=== PATIENT | female | born 1930 | race Caucasian/White ===

== ENCOUNTER 2019-03-22 16:34 | Inpatient (IN) | payer OTHER ==
[~2019-03-22] VITALS: Ht 165.1 cm; Wt 50.8 kg
--- NOTE | ~2019-03-22 | D ---
[facility] [place] [address] DISCHARGE SUMMARY Name: LINDA SHAY Room #: 522B-B DIS IN M.R.#: [id number] Admission: 03/22/19 Attend Phys: Bradley Fu DO Discharge: 03/27/19 Date of : [birth year] Report #: [id number] THIS REPORT FOR: //name// CC: Bradley Fu [facility] DATE OF SERVICE: 03/27/2019 PSYCHIATRIC DISCHARGE SUMMARY ATTENDING PHYSICIAN: Bradley Fu DO HELIOTHERAPIST THIS ADMISSION: Bradley Jara MD DISCHARGE DIAGNOSES: Delusional disorder; also a mild major neurocognitive disorder. DISCHARGE PLAN: Patient's family taking her back to assisted living facility today. Recommended to have primary care as well as psychiatric followup to be provided by the receiving facility. DIET: Regular. ACTIVITY LEVEL: As tolerated. No driving, no alcohol, no illicit drugs. REASON FOR ADMISSION: The patient apparently had a series of bizarre, some of them threatening statements alleging she was going to shoot herself and things like that. She also coincidentally had been visiting a neurologist and claims she had white dots on her skin. HOSPITAL COURSE: The patient was admitted to the Geriatric Psychiatry Unit. The patient did not have any self-injurious thoughts or behaviors while on the unit. She did voice a strong opinion that there were these lesions on her skin. She was started on 2.5 mg a day of olanzapine to address these delusions. Supportive listening was provided. I did not feel a prolonged hospital stay would be beneficial to the patient. On the date of discharge, she was not suicidal or homicidal, and she requested discharge beginning of this week. DISCHARGE MEDICATIONS: Metoprolol succinate 25 mg p.o. daily for rate control and blood pressure, olanzapine 2.5 mg p.o. b.i.d. for psychosis, bumetanide (Bumex) 0.5 mg p.o. daily, levothyroxine 112 mcg daily for hypothyroidism, vitamin D3 5000 international units p.o. daily, topiramate 100 mg p.o. b.i.d., paroxetine 10 mg p.o. t.i.d., this is a rather unusual regimen but we will run with it, simvastatin 40 mg p.o. daily for hyperlipidemia, potassium chloride 10 mEq p.o. daily for supplementation, lisinopril 5 mg p.o. daily, apixaban 5 mg p.o. daily and bupropion SR 100 mg p.o. daily. [address] [address] DISCHARGE SUMMARY Name: LINDA SHAY Room #: 522B-B [facility] IN M.R.#: [id number] Admission: 03/22/19 Attend Phys: Bradley Fu, Discharge: 03/27/19 Date of : [birth year] Report #: [id number] I just noticed something that the hospitalist recommended her levothyroxine be changed to 112 mcg for a TSH of 15.8, recheck in 6-8 weeks. MEDICAL COMORBIDITIES: 1. Hypertension. Continue beta eloisa. 2. Unstable gait, using a walker. 3. History of atrial fibrillation, on Eliquis, beta eloisa, and amiodarone. 4. Also coronary artery disease. LABORATORY DATA THIS ADMISSION: H and H 12.7 and 37.4, white count 7.6, platelet count 176, that was on March 25. On March 25, sodium 141, potassium 4.4, chloride 107, bicarbonate 28, BUN 25, creatinine 1.0, estimated GFR 52, glucose 82, calcium 9.2, magnesium 2.1. MUSCULOSKELETAL EXAMINATION: Frail female wearing glasses. MENTAL STATUS EXAMINATION: This is a well-developed female appearing stated age. Attention intact. Concentration intact. Speech normal rate. Thought process linear and limited. Thought content focused on discharge. Mood and affect anxious, congruent, constricted. Denied SI or HI. Denied hopelessness, helplessness. Memory not formally tested. Insight limited. Judgment limited. PROGNOSIS: For this patient is guarded given her medical and cognitive concerns. By: [id number] Bradley Fu, DO /nt
[~2019-03-22 16:34] MED LIST: ALEVE220 M1 PO; CENTRUM SILVER1 EAC4 PO; ELIQUIS5 MG PO; KLOR-CON 1010 MEQ PO; LASIX 40 MG TAB40 M2 PO; LOPRESSOR50 PO; PAXIL10 MG PO; PRINIVIL10 MG PO; RESTORIL15 MG PO; SIMVASTATIN40 MG PO; SORINE 80 MG TA80 M1 PO; SYNTHROID112 MCG PO; TROKENDI XR100 MG PO; WELLBUTRIN SR100 MG PO
--- NOTE | 2019-03-22 18:46 | NUR ---
WHITE FEMALE ADMITTED THROUGH ER FROM A SKILLED NURSING. SHE IS VERY ANXIOUS. SHE STATES SHE FEELS HER SKIN FEELS LIKE SAND OR FINE SUGAR ALL OVER HER BODY. SHE FEELS THIS IS CAUSING ISSUES AND THEREFORE SHE FEELS SUICIDAL BECAUSE OF THE WAY IT MAKES HER FEEL. SHE DENIES HAVING A PLAN. SHE LIVES IN A SKILLED NURSING, HAS VERY LITTLE SUPPORT SYSTEM. HER DAUGHTER ABOUT 2 YEARS AGO. SINCE THAT TIME SHE HAS BEEN INCREASINGLY NOT BEEN ABLE TO CARE FOR HERSELF. HER DAUGHTERS BEST FRIEND IS HER DPOA (EDITH SINGLETON PHONE [phone]). THE DPOA WAS VERY HELPFUL IN ASSISTING STAFF WITH THE ADMISSION AND DID SIGN ALL THE CONSENTS. SHE HAS A PMHX OF AFIG, HIP FX, FELL ABOUT 1 MONTH AGO. SHE HAS DENTURES, GLASSES. SHE HAS HEARING AIDS BUT NOT WITH HER AT THE HOSPITAL. SHE STATES SHE HAS A POOR APPETITE AND DOES NOT EAT WELL. DR. JAQUEZ WAS NOTIFIED OF HER ARRIVAL AND STATED HE WOULD SEE HER IN THE MORNING. SHE IS 5'5'' AND 111LBS. HER VITALS WERE 128/61, HR 66, OR 92%, T 98.0.
[2019-03-22 19:07] VITALS: BP 128/61
[2019-03-22 20:53] VITALS: BP 110/61
[2019-03-23 01:31] VITALS: BP 110/61
--- NOTE | 2019-03-23 04:51 | NUR ---
PATIENT CAME IN NEW PATIENT TODAY. SHE HAS BEEN COOPERATIVE BUT IS VERY ANXIOUS AT TIMES. AT BEDTIME SHE WAS CONCERNED THAT SHE COULD NOT HAVE HER XANAX AND STATES SHE IS USED TO TAKING IT TO HELP HER SLEEP. I LET HER KNOW I WOULD CALL THE DOCTOR IF SHE HAD PROBLEMS FALLING TO SLEEP. SHE FELL ASLEEP AND HAS SLEPT ALL NIGHT. SHE HAS A HISTORY OF A CABG IN PAST AND STATES THAT THE VEIN FROM HER LEFT LEG WAS USED FOR THE SURGERY BUT THAT IT'S HER RIGHT LEG THAT BOTHERS HER. SHE STATES SHE HAD INJURED HER RIGHT HIP BEFORE AND IT SOMETIMES CAUSES HER RIGHT LEG PAIN. SHE WAS GIVEN TYLENOL 650 AT AND THIS HAS SEEMED TO HELP. SHE IS UP WITH WALKER. SHE IS UPSET THAT WE SET HER BED LOW TO THE GROUND AND TURN THE BED ALARM ON. SHE WANTS TO BE INDEPENDENT WITH THIS BUT SHE DOES NEED STAND BY ASSIST SINCE SHE CAN'T BEAR WEIGHT FOR LONG PERIOD OF TIME. PT STATES SHE HATES NOT BEING ABLE TO LIVE IN HER HOME. SHE STATES SHE HAS BEEN LIVING IN ASSISTED LIVING [facility] IN [facility]. PATIENT HAS HER BLUE FRAMED EYE GLASSES AT BEDSIDE AND USING HER OWN WALKER. SHE DOES NOT HAVE HEARING AIDS HER. PATIENT HAS BEEN SLEEPING QUIETLY SINCE AROUND 2129.
[2019-03-23 07:45] VITALS: BP 158/77
[2019-03-23 08:00] VITALS: BP 158/77
--- NOTE | 2019-03-23 09:00 | NUR ---
PT TOOK MEDS THIS AM WITHOUT ISSUES. PT STATED SHE WOULD LIKE TO TALK TO TODAY. PT USES WALKER TO AMBULATE. PT HAS STEADY GAIT.
--- NOTE | 2019-03-23 12:30 | NUR ---
PT TALKING WITH DR. ALTAMIRANO STATED SHE IS FEELING ANXIOUS IN THE ROOM OF PEOPLE.
--- NOTE | 2019-03-23 13:16 | NUR ---
STARTED NEW ZYPREXIA 2.5MG TOLD PT THAT HER XANAX WAS D/C. PT STATED THAT SHE HAD TAKEN XANAX TID THEN WENT TO ANOTHER PSYCH DR AND THEY SAID THAT TO TAKE IT AT NIGHT. PT GOING TO GROUP AFTER ADM OF MED.
--- NOTE | 2019-03-23 13:57 | NUR ---
PT WANTING TO KNOW ABOUT HER CLOTHES, PT STATED HER FAMILY BROUGHT HER CLOTHES, WILL GET CLOTHES FOR HER.
[2019-03-23 21:35] VITALS: BP 101/52
--- NOTE | 2019-03-23 21:51 | NUR ---
PT RESTING IN BED UPON ARRIVAL TO SHIFT. PT COMPLIANT WITH MEDICATIONS. PT ASKED FOR NAME OF MEDICATION REPLACING XANAX. PT STATED CONCERN THAT SHE WILL NOT BE ABLE TO SLEEP WITHOUT SLEEPING PILL. SENIOR COST ANALYST RISK ASSESSMENT CONSULTANT WILL BE NOTIFIED OF PTS REQUEST. [facility] CONTACT, FLAT AFFECT, AMBULATES WITH WALKER.
[2019-03-24 07:30] VITALS: BP 137/71
[2019-03-24 09:05] VITALS: BP 137/71
--- NOTE | 2019-03-24 09:24 | NUR ---
PT BEING COMPLIANT WITH MEDS. PT UPSET AND HANDS SHAKING. PT STATED SHE WAS WORRIED ABOUT LIVING IN ASSISTED LIVING AND PAYING FOR HER HELPER AND TALKING ABOUT HER DAUGHTER 2 YEARS AGO FROM PAIN MEDS. SHE STATED THAT SHE ON HER BIRTHDAY. SHE ALSO WAS UPSET ABOUT A MAN SLEEPING IN HER ROOM TODAY. PT STATED SHE WANTS SOME CLOTHES TO WEAR ALSO AND THAT SHE HAD SOME CLOTHES BROUGHT. PT STATED THAT HER SON DOESN'T CARE ABOUT HER AND HE WENT TO [place] AND DIDN'T KNOW SHE WAS HERE.
[2019-03-24 19:17] VITALS: BP 112/69
--- NOTE | 2019-03-24 21:34 | NUR ---
PT WATCHING TV WITH PEERS UPON ARRIVAL TO SHIFT, BLUNTED AFFECT, [facility] CONTACT WITH CONVERSATION. AMBULATION WITH WALKER. PT COMPLIANT WITH MEDICATION AND HS SNACK . PT ASKED ABOUT MEDICATION REPLACING XANAX AND PT INFORMED OF NAME. SHE EXPRESSED CONCERN THAT DURING THE DAY THE DR WAS NOT ABLE TO FIND THE NAME OF THE MEDICATION HE ORDERED FOR HER IN HIS COMPUTER.
--- NOTE | 2019-03-24 21:44 | NUR ---
PT STATED SHE LIKES TO GO TO BED AT 10 AND SLEEP IN UNTIL 10. SHE LIKES TO WATCH TV AT HOME. SHE STATED SHE GETS UPSET AT THE AL BECAUSE STAFF CONTINUE TO CHECK ON HER EARLY IN THE MORNING AND WAKE HER UP. PT STATED MELATONIN DOES NOT WORK FOR HER AND SHE HAS TRIED IT IN THE PAST. PT STATED AT THE AL HER PEERS GO TO BED AT 6PM AND WAKE UP AT 6 AM, SHE FEELS GUILTY FOR LIKING TO SLEEP IN AND STAY UP LATE.
--- NOTE | 2019-03-24 23:44 | NUR ---
PT AWAKENED SITTING ON THE EDGE OF THE BED. PT STATED SHE CANNOT SLEEP, SHE DOES NOT WANT A SNACK, TO READ OR WATCH TV. SHE STATED SHE WAS BROUGHT HERE BECAUSE SHE FEELS LIKE THERE IS WET SAND ON HER FACE ARMS AND HAIR AND THAT THE NEUROLOGIST AND PSYCHIATRIST THINK IT IS IN HER IMAGAINATION. SHE STATED SHE JUST WANTS TO GO HOME ON WEDNESDAY.
[2019-03-25 05:59] LABS: ABSOLUTE NEUTROPHILS 5.2 thou/uL (1.4-8.2); BASOPHILS 0.9 % (0.0-2.0); HEMATOCRIT 37.4 % (37.0-47.0); HEMOGLOBIN 12.7 gm/dL (12.0-15.0); MCH 34.4 pg (26.0-34.0); MCV 101.3 fL (80.0-100.0); MONOCYTES 7.4 % (1.0-8.0); PLATELET COUNT 176 thou/uL (150-400); POLYS 68.7 % (36.0-66.0); RDW 14.4 % (10.5-14.5); WBC 7.6 thou/uL (4.0-11.0)
[2019-03-25 06:26] LABS: CALCIUM 9.2 mg/dL (8.5-10.1); MAGNESIUM 2.1 mg/dL (1.8-2.4)
[2019-03-25 06:29] LABS: POTASSIUM 4.4 mmol/L (3.5-5.1)
[2019-03-25 08:34] VITALS: BP 139/70
[2019-03-25 19:40] VITALS: BP 129/94
--- NOTE | 2019-03-26 03:40 | NUR ---
NURSES NOTE - ASSUMED CARE OF PATIENT AT APPRXIMATELY 1915. DURING INTRODUCTION WITH PATIENT SHE ASKED 'WHY ARE YOU PEOPLE BOTHERING THE HELL OUT OF ME.' THIS NURSE EXPLAINED THE NORMAL PROCEDURE OF BEING IN THE HOSPITAL. SHE RELUCTANTLY OBLIGED TO LET THIS RN ASSESS HER, STATING 'WELL COME ON HURRY THE FUCK UP.' SHE USED MANY EXPLETIVES DURING THIS TIME. MEDICATION ADMINISTRATION WAS BEING COMPLETED SHE APPEARED ANXIOUS R/T NOT HAVING HER XANAX. THIS NURSE GAVE MEDICATION EDUCATION REGARDING RESTORIL AND THAT QUALITIES IT HAS THAT WILL HELP HER SLEEP WELL THE ADDICTIVE NATURE OF XANAX. SHE OBLIGED AND WAS MED COMPLIANT. THIS NURSE HAD VERY LIMITED INTERACTION DUE TO PATIENTS UNWILLINGNESS. WILL CONTINUE TO MONITOR THROUGH THE NIGHT.
[2019-03-26 09:11] VITALS: BP 142/71
--- NOTE | 2019-03-26 18:41 | NUR ---
PT ALERT AND ORIENTED TIMES FOUR. VSS. PT DENIES SI/HI/AH/VH/. PT TOLERATES MEDS AND MEALS. PT DENIES PAIN. PT ATTENDED GROUPS THIS SHIFT. PT UP WALKING AROUND THE UNIT WITH WALKER. PT PROGRESSING TOWRADS POC GOALS.
[2019-03-26 20:46] VITALS: BP 112/65
[2019-03-27 00:45] VITALS: BP 112/65
--- NOTE | 2019-03-27 04:03 | NUR ---
PT OUT IN DAY AREA AT START OF SHIFT. WATCHING TV BUT INTERACTING MINIMALLY. EXPRESSED ANGER AT MD FOR CHANGING HER MEDS. "I NEED XANAX TO HELP ME SLEEP". TOOK HS MEDS PRESCRIBED BUT VERY UNHAPPY WITH CHANGE AND TOLD STAFF EXACTLY HOW SHE FEELS ABOUT IT. SURLY, BUT EVENTUALLY SETTLED AND SLEPT WELL THROUGH THE NIGHT. EXPRESSED DESIRE TO " GET OUT OF HERE" SOON POSSIBLE.
--- NOTE | 2019-03-27 08:09 | H ---
[facility] [place] [address] HISTORY AND PHYSICAL Name: LINDA SHAY Room #: 522B-B ADM IN M.R.#: [id number] Admission: 03/22/19 Attend Phys: Bradley Fu DO Discharge: Date of : [birth year] Report #: [id number] THIS REPORT FOR: //name// CC: Bradley Fu Sophy Benjamin DATE OF SERVICE: 03/23/2019 INPATIENT PSYCHIATRIC EVALUATION ATTENDING PHYSICIAN: Bradley Fu DO WORKFORCE ADVISOR: Nisreen Heart APRN. REASON FOR ADMISSION: Psychosis. SOURCES OF INFORMATION: DPOA interview, interview with the patient, records from [facility]. HISTORY OF PRESENT ILLNESS: This is an 88-year-old female who has had Neurology appointment at the hospital then sent to ER allegedly due to suicidal ideations. The patient stated that she has suicidal plan to shoot herself with a gun. The patient does not have a gun; however, she stated that she had one to shoot herself. She started to have health issues as well as what appears to be tactile hallucinations when she feels like bugs are crawling on her constantly. This has also been described as "white spots". The patient is aware that she should not feel this way, but she stated she cannot help it and she is seeking help with sensations. The patient stated "I wash myself twice a day" The patient stated that sensation started two years ago in her eyes and continued to spread across her body. The patient is also experiencing anxiety and reports to have panic attacks daily. The patient denies HI. It looks like she was fully oriented, looks like she was opposing psychiatric admission in the ER. PAST MEDICAL HISTORY: Includes atrial fibrillation, heart failure, hyperlipidemia, hypertension, hypothyroidism, cardiomyopathy and pulmonary embolism. PAST SURGICAL HISTORY: She had a CABG remotely. SOCIAL HISTORY: Smoking, never smoked. Denies current alcohol use. LABORATORY DATA: I did an EKG, which showed sinus rhythm at 63, complete left bundle branch block, nonspecific ST segment, Q-wave segment. Laboratories from [facility], sodium 141, potassium 4.0, chloride 105, [address] [address] HISTORY AND PHYSICAL Name: LINDA SHAY Room #: [facility] ADM IN [facility].#: [id number] Admission: 03/22/19 Attend Phys: Bradley Fu, DO Discharge: Date of : [birth year] Report #: [id number] bicarbonate 27, anion gap 9, calcium 9.8, glucose 84, total serum protein 7.5, albumin 4.5, alkaline phosphatase 90, ALT 18, AST 26, BUN 25, creatinine 1.4, estimated GFR for a blq-Iltltso-Ipsgsjck less than 35. UDS was present for opiates, benzodiazepines. Urinalysis is negative. CBC showed white count 9.27, H and H of 13.1 and 39, platelet count 173. Affidavit was done, DPOA forms are present. MENTAL STATUS EXAMINATION: This is a well-developed, frail female wearing glasses. Attention fair. Concentration fair. Speech, memory and thought process are linear and goal directed. Thought content focused on the present. Endorses hopelessness, helplessness. Denied current SI. Denied homicidal intent or plan. Memory not formally tested today. Insight limited. Judgment limited. Fund of knowledge average. FORMULATION: An 88-year-old female admitted for suicidal ideation. DIAGNOSIS: Major depressive disorder, single episode, severe degree with relatively recent loss of significant other. Cognitive impairment, unspecified. PLAN: Evaluate, stabilize, obtain collateral. MEDICATIONS: Continue potassium 10 mEq daily, metoprolol 25 mg daily, lisinopril 5 mg daily, Bumex 0.5 mg daily, ascorbic acid 500 mg daily, amiodarone 200 mg daily, alprazolam currently ordered at 0.25 mg daily, but I think she is having rebound trauma, levothyroxine 100 mcg daily, topiramate 25 mg at bedtime. Eliquis 2.5 mg twice per day, usual p.r.n. With regards to the psychotic phenomena, I would like to start her on haloperidol 0.5 mg twice daily to see if particularly tactile hallucinations get snuffed out. I think we will go ahead and stop her Xanax for now as I htink this is causing her rebound and little solution , I have talked with her daughter and DPOA about Zyprexa, so we will start that at 2.5 mg twice a day and stop the Xanax. Time spent on interview, review of records, coordination of care is approximately 60 minutes. <ELECTRONICALLY SIGNED> By: Bradley Fu DO 03/27/19 0809 [id number] Bradley Fu, /nt
--- NOTE | 2019-03-27 08:10 | H ---
[facility] [address] [place] [address] HISTORY AND PHYSICAL Name: LINDA SHAY Room #: 522B-B ADM IN M.R.#: [id number] Admission: 03/22/19 Attend Phys: Bradley Fu DO Discharge: Date of : [birth year] Report #: [id number] THIS REPORT FOR: //name// CC: Bradley Benjamin DATE OF SERVICE: 03/22/2019 NO DICTATION error! <ELECTRONICALLY SIGNED> By: Bradley Fu DO 03/27/19 0810 [id number] Bradley Fu DO /nt
[2019-03-27] MEDS ORDERED: METOPROLOL SUCC25 M1 PO (09:34)
[2019-03-27] MEDS ORDERED: ZYPREXA 5 MG TAB5 M1 PO (09:35)
[2019-03-27] MEDS ORDERED: BUMETANIDE 1 MG1 M1 PO (09:36)
[2019-03-27] MEDS ORDERED: SYNTHROID100 MC1 PO (09:37)
[2019-03-27] MEDS ORDERED: VITAMIN D5000 UNIT PO (09:38)
[2019-03-27 09:39] VITALS: BP 136/97
[2019-03-27 09:52] VITALS: BP 136/97
--- NOTE | 2019-03-27 12:00 | NUR ---
PATIENT DENIES THOUGHTS OF HURTING SELF OR OTHERS. DESCRIBES TACTILE FEELINGS HAVING DECREASED FROM FEELING OF BUGS CRAWLING ON HER TO NOW FEELING IF A POWDER SUBSTANCE IS ON HER SKIN. PATIENT AND FAMILY PROVIDED DISCHARGE INSTRUCTIONS, PRESCRIPTIONS, DRUG INFORMATION, & MEDICARE FORMS. patient AND FAMILY REPORT UNDERSTANDING OF DISCHARGE EDUCATION. PATIENT LEFT HOSPITAL WITH DAUGHTER VIA PRIVATE VEHICLE. ESCORTED IN WHEELCHAIR BY STAFF TO VEHICLE. PATIENT PROGRESSED TOWARDS GOALS FOR DISCHARGE.
== END 2019-03-27 12:04 | disposition home or self-care (01) | DRG 885 ==
LOC: SBH 16:34
PROVIDERS: Nurse Practitioner; ADMIT Psychiatry & Neurology Psychiatry
DX: F22 Delusional disorders (principal); F32.2 Major depressive disorder, single episode, severe without psychotic features; R45.851 Suicidal ideations; I42.9 Cardiomyopathy, unspecified; N17.9 Acute kidney failure, unspecified; I48.91 Unspecified atrial fibrillation; I25.10 Atherosclerotic heart disease of native coronary artery without angina pectoris; F41.0 Panic disorder [episodic paroxysmal anxiety]; E78.5 Hyperlipidemia, unspecified; E03.9 Hypothyroidism, unspecified; I50.9 Heart failure, unspecified; G62.9 Polyneuropathy, unspecified; I11.0 Hypertensive heart disease with heart failure; R29.6 Repeated falls; Z66 Do not resuscitate; Z79.01 Long term (current) use of anticoagulants; Z79.899 Other long term (current) drug therapy; Z86.711 Personal history of pulmonary embolism; Z95.1 Presence of aortocoronary bypass graft; Z88.8 Allergy status to other drugs, medicaments and biological substances; Z88.6 Allergy status to analgesic agent; Z86.718 Personal history of other venous thrombosis and embolism
CPT/HCPCS: 10880